=== PATIENT | female | born 1980 | race Caucasian/White ===

== ENCOUNTER 2016-07-01 08:17 | Emergency (ER) | payer SELFPAY ==
[~2016-07-01] VITALS: Ht 152.4 cm; Wt 75.3 kg
[2016-07-01 08:19] VITALS: TEMP 36.9; Ht 152.4 cm; Wt 75.3 kg
[2016-07-01] MEDS ORDERED: AZITTAB PO (09:15)
[2016-07-01] MEDS ORDERED: PIPERACILLIN/TAZOBACTAM 4.5 GM/100ML D5W IV STA (09:23)
[2016-07-01] MEDS ORDERED: KETOROLAC TROMETHAMINE 30 MG/ML VIAL IV STA (09:23)
[2016-07-01] MEDS ORDERED: SODIUM CHLORIDE 0.9% 1000ML 1,000 ML IV STA (09:23)
[2016-07-01] MEDS ORDERED: ONDANSETRON INJ 2 MG/ML 2 ML VIAL IV STA (09:23)
--- NOTE | 2016-07-01 09:31 | EMERGENCY ROOM VISIT NOTE ---
History Report prepared by Seb: Jamie Brown Under the Supervision of: Dr. Aureliano Prater M.D. First contact with patient: 09:14 Chief Complaint: DENTAL PAIN Stated Complaint: CHEST DISCOMFORT, TOOTH INFECTION Nursing Triage Summary: Pt states "this is the 6th time I've had a tooth infection. I don't see the Dr" . States this is the 5th day of this infection, taking zpack for it and it's not working. "I just had it at home (zpack)". Now c/o left facial pain and chest discomfort (possible from tacos with hot sauce last night) Tooth infection left front lower. History of Present Illness The patient is a 36 year old female who presents to the Emergency Room with complaints of constant dental pain for the past five days. The patient states that this is the 6th time this year that she has had a tooth infection. The patient additionally complains of some sharp pain in her chest that is worse with movement and deep breaths. The patient states that she started a Z-pack since she thinks that she has an infection again, however it has not helped. The patient additionally denies any medical heart history. Source of History: patient Onset: five days ago Position: teeth Timing: constant Associated Symptoms: + chest pain (sharp) Review of Systems See HPI for pertinent positives & negatives. A total of 10 systems reviewed and were otherwise negative. Past Medical & Surgical Medical Problems: (1) Tooth infection Family History Cancer Diabetes mellitus FH: Ulans-Dlkazrkci-Phead syndrome Heart disease Hypertension Kidney disease Kidney stones Lung disease Social History Smoking Status: Current Every Day Smoker Alcohol Use: heavy Marital Status: single Occupation Status: employed Current/Historical Medications Scheduled Azithromycin (Zithromax Z-Sim), 1 PKT PO UD Penicillin V Potassium (Veetids), 1 TAB PO QID Scheduled PRN Oxycodone/Acetaminophen 5MG/325MG (Percocet 5MG/325MG), 1-2 TAB PO Q4H PRN for Pain Allergies Coded Allergies: No Known Allergies (Unverified , NONE, 07/01/16) Physical Exam Vital Signs Date Time Temp Pulse Resp B/P Pulse Ox O2 Delivery O2 Flow Rate FiO2 07/01/16 11:38 89 118/80 100 07/01/16 10:24 82 20 105/75 95 Room Air 07/01/16 09:42 98 Room Air 2/15/17 09:34 85 07/01/16 08:19 36.9 103 16 131/85 99 Room Air Physical Exam GENERAL: Patient is a healthy-appearing well-nourished HEAD: Normocephalic atraumatic EYES: Ocular movements intact pupils equal and react to light OROPHARYNX mucous membranes are moist no exudates present no erythema or edema present DENTAL: Tenderness to the left mandible of the jaw. No outright abscess noted to the teeth. NECK: Supple no nuchal rigidity CHEST: Good equal expansion LUNGS: Clear and equal to auscultation CARDIAC: Normal S1 and S2. No evidence of Yonas angina. ABDOMEN: Soft nontender no guarding BACK: No CVA tenderness EXTREMITIES: No pain upon palpation normal muscle strength in all groups no clubbing cyanosis or edema NEURO: Patient is following commands is answering questions appropriately. Alert and oriented x3 Cranial Nerves 2-12 grossly intact Medical Decision & Procedures ER Provider Diagnostic Interpretation: X-ray results as stated below per my interpretation and radiologist interpretation. Other radiology results as stated below per my review and radiologist interpretation: CHEST ONE VIEW PORTABLE CLINICAL HISTORY: Chest pain. COMPARISON STUDY: Chest radiograph October 20, 2011. FINDINGS: Lung volumes are normal. Lungs are clear. There is no pneumothorax or pleural effusion. Cardiac size is normal. Mediastinal contours are normal. There is no evidence of pulmonary edema. IMPRESSION: No acute cardiopulmonary findings. Electronically signed by: Maciel Hauser M.D. 07/01/2016 10:01 AM Dictated Date/Time: 07/01/2016 9:[address] DOSE: 631.03 mGy.cm HISTORY: Pt c/o left sided facial swelling TECHNIQUE: Multiaxial CT images of the maxillofacial region were performed and reformatted in the coronal plane without the use of contrast. COMPARISON: None. FINDINGS: There is left mandibular subcutaneous fat stranding. There a few mildly enlarged left submandibular lymph nodes which are likely reactive. Multiple dental caries are present most pronounced within the left mandibular region. There is also a 6 mm periapical lucency at ADA 20 which appears to demonstrate a 1 mm focus of cortical breakthrough. There is soft tissue edema abutting the buccal surface of the left mandible. No definite loculated fluid collections on this noncontrast study to suggest an abscess at this time. The visualized brain parenchyma and orbits are unremarkable. IMPRESSION: 1. A 6 mm periapical lucency at ADA 20 which appears to demonstrate a 1 mm focus of cortical breakthrough at the buccal surface. There is associated soft tissue edema adjacent to the cortical breakthrough as well as left mandibular subcutaneous fat stranding which is likely reactive. No loculated fluid collections on this noncontrast study. 2. Multiple additional dental caries identified. Electronically signed by: Mohan Chappell M.D. 07/01/2016 11:11 AM Dictated Date/Time: 07/01/2016 11:00 AM Laboratory Results 07/01/16 09:33 Red Blood Count 5.09, Mean Corpuscular Volume 84.3, Mean Corpuscular Hemoglobin 28.9, Mean Corpuscular Hemoglobin Concent 34.3, Mean Platelet Volume 9.7, Neutrophils (%) (Auto) 69.0, Lymphocytes (%) (Auto) 22.1, Monocytes (%) (Auto) 6.6, Eosinophils (%) (Auto) 2.0, Basophils (%) (Auto) 0.2, Neutrophils # (Auto) 6.33, Lymphocytes # (Auto) 2.03, Monocytes # (Auto) 0.61, Eosinophils # (Auto) 0.18, Basophils # (Auto) 0.02 07/01/16 09:33 Test 07/01/16 09:33 White Blood Count 9.18 K/uL (4.8-10.8) Red Blood Count 5.09 M/uL (4.2-5.4) Hemoglobin 14.7 g/dL (12.0-16.0) Hematocrit 42.9 % (37-47) Mean Corpuscular Volume 84.3 fL (80-100) Mean Corpuscular Hemoglobin 28.9 pg (25-34) Mean Corpuscular Hemoglobin Concent 34.3 g/dl (32-36) Platelet Count 319 K/uL (130-400) Mean Platelet Volume 9.7 fL (7.4-10.4) Neutrophils (%) (Auto) 69.0 % Lymphocytes (%) (Auto) 22.1 % Monocytes (%) (Auto) 6.6 % Eosinophils (%) (Auto) 2.0 % Basophils (%) (Auto) 0.2 % Neutrophils # (Auto) 6.33 K/uL (1.4-6.5) Lymphocytes # (Auto) 2.03 K/uL (1.2-3.4) Monocytes # (Auto) 0.61 K/uL (0.11-0.59) Eosinophils # (Auto) 0.18 K/uL (0-0.5) Basophils # (Auto) 0.02 K/uL (0-0.2) RDW Standard Deviation 41.8 fL (36.4-46.3) RDW Coefficient of Variation 13.5 % (11.5-14.5) Immature Granulocyte % (Auto) 0.1 % Immature Granulocyte # (Auto) 0.01 K/uL (0.00-0.02) Anion Gap 8.0 mmol/L (3-11) Est Creatinine Clear Calc Drug Dose 86.4 ml/min Estimated GFR () 108.4 Estimated GFR (Non- 93.5 BUN/Creatinine Ratio 15.6 (10-20) Calcium Level 9.3 mg/dl (8.5-10.1) Total Bilirubin 0.4 mg/dl (0.2-1) Direct Bilirubin < 0.1 mg/dl (0-0.2) Aspartate Amino Transf (AST/SGOT) 17 U/L (15-37) Alanine Aminotransferase (ALT/SGPT) 29 U/L (12-78) Alkaline Phosphatase 87 U/L (45-117) Total Creatine Kinase 79 U/L (26-192) Creatine Kinase MB 0.7 ng/ml (0.5-3.6) Creatine Kinase MB Ratio 0.9 (0-3.0) Troponin I < 0.015 ng/ml (0-0.045) Total Protein 7.5 gm/dl (6.4-8.2) Albumin 3.7 gm/dl (3.4-5.0) Lipase 98 U/L (73-393) Labs reviewed by ED physician. Medications Administered Medications (Trade) Dose Ordered Sig/Tiffany Route Start Time Stop Time Status Last Admin Dose Admin Ketorolac Tromethamine (Toradol Inj) 30 mg NOW STAT IV 07/01/16 09:23 07/01/16 09:26 DC 07/01/16 09:56 30 MG Piperacillin Sod/ Tazobactam Sod 4.5 gm 4.5 gm NOW STAT IV 07/01/16 09:23 07/01/16 09:26 DC 07/01/16 09:58 4.5 GM Sodium Chloride (Nss 1000ml) 1,000 ml @ 999 mls/hr Q1H1M STAT IV 07/01/16 09:23 07/01/16 10:23 DC 07/01/16 09:55 999 MLS/HR Ondansetron HCl (Zofran Inj) 4 mg NOW STAT IV 07/01/16 09:23 07/01/16 09:26 DC 07/01/16 09:56 4 MG ECG Indication: chest pain Rate (beats per minute): 100 Rhythm: normal sinus Findings: no acute ischemic change, no ectopy ED Course 0914: Past medical records reviewed. The patient was evaluated in room C2. A complete history and physical examination was performed. 0923: Zofran Inj 4mg IV, Sodium Chloride 1000 ml @ 999 mls/hr IV, Zosyn 4.5gm IV , Toradol Inj 30mg IV 1020: I reevaluated the patient and she was resting. 1125: Upon reexamination the patient is feeling better. I discussed results and treatment plan with the patient. She verbalizes agreement and understanding. The patient is ready for discharge. Medical Decision Differential diagnosis: Etiologies such as cardiac ischemia, aortic dissection, pulmonary embolism, pneumonia, pneumothorax, musculoskeletal, infections, pericarditis, myocarditis , esophageal rupture, gastrointestinal, as well as others were entertained. This is a 36-year-old female who presents emergency department complaining of swollen jaw. The patient has a history of tooth infections. Because of the swelling she was sent for a CAT scan of her face however she does not have any evidence of Yonas's angina on examination. In addition the patient does not have an elevation in her white blood count. For this reason she was started on Zosyn in the emergency department. I'll continue her on penicillin however I stressed the need for follow-up with a dentist. Patient was in agreement with the treatment plan. Impression Primary Impression: Pain, dental Scribe Attestation The scribe's documentation has been prepared under my direction and personally reviewed by me in its entirety. I confirm that the note above accurately reflects all work, treatment, procedures, and medical decision making performed by me. Departure Information Dispostion Home / Self-Care Prescriptions Oxycodone/Acetaminophen 5MG/325MG (PERCOCET 5MG/325MG) Tab 1-2 TAB PO Q4H Y for Pain, #14 TAB Prov: Aureliano Prater MD 07/01/16 Penicillin V Potassium (VEETIDS) 500 Mg Tab 1 TAB PO QID for 10 Days, #40 TAB Prov: Aureliano Prater MD 07/01/16 Referrals No Doctor, Assigned (PCP) Forms HOME CARE DOCUMENTATION FORM, IMPORTANT VISIT INFORMATION, School Instructions, Work Instructions Patient Instructions My [facility], Visit Dental Additional Instructions You have been examined and treated today on an emergency basis only. This is not a substitute for, or an effort to provide, complete comprehensive medical care. It is impossible to recognize and treat all injuries or illnesses in a single emergency department visit. It is therefore important that you follow up closely with your PCP. Call as soon as possible for an appointment. Thank you for your time and consideration. I look forward to speaking with you again soon. Please don't hesitate to call us if you have any questions.
[2016-07-01 09:42] VITALS: O2SAT 98
[2016-07-01 09:46] LABS: BASO % 0.2 %; BASO ABS # 0.02 K/uL (0-0.2); COMPLETE YES; HEMATOCRIT 42.9 % (37-47); IG% 0.1 %; LYMPH % 22.1 %; LYMPH ABS # 2.03 K/uL (1.2-3.4); MEAN CELL VOLUME 84.3 fL (80-100); MEAN CORPUSCULAR HEMOGLOBIN 28.9 pg (25-34); MEAN CORPUSCULAR HGB CONC 34.3 g/dl (32-36); MEAN PLATELET VOLUME 9.7 fL (7.4-10.4); MONO % 6.6 %; PLATELET COUNT 319 K/uL (130-400); RED BLOOD COUNT 5.09 M/uL (4.2-5.4); WHITE BLOOD COUNT 9.18 K/uL (4.8-10.8)
--- NOTE | 2016-07-01 10:03 | DIAGNOSTIC IMAGING REPORT ---
CHEST ONE VIEW PORTABLE CLINICAL HISTORY: Chest pain. COMPARISON STUDY: Chest radiograph October 20, 2011. FINDINGS: Lung volumes are normal. Lungs are clear. There is no pneumothorax or pleural effusion. Cardiac size is normal. Mediastinal contours are normal. There is no evidence of pulmonary edema. IMPRESSION: No acute cardiopulmonary findings. Electronically signed by: Maciel Hauser M.D. 07/01/2016 10:01 AM Dictated Date/Time: 07/01/2016 9:44 AM
[2016-07-01 10:07] LABS: ALT/SGPT 29 U/L (12-78); BLOOD UREA NITROGEN 13 mg/dl (7-18); BUN/CREATININE RATIO 15.6 (10-20); CALCIUM 9.3 mg/dl (8.5-10.1); CARBON DIOXIDE 27 mmol/L (21-32); CHLORIDE 106 mmol/L (98-107); GLUCOSE 95 mg/dl (70-99); POTASSIUM 4.3 mmol/L (3.5-5.1); SODIUM 141 mmol/L (136-145)
[2016-07-01 10:12] LABS: ALKALINE PHOSPHATASE 87 U/L (45-117); AST/SGOT 17 U/L (15-37); CKMB/CK RATIO 0.9 (0-3.0)
--- NOTE | 2016-07-01 11:13 | DIAGNOSTIC IMAGING REPORT ---
MAXILLOFACIAL CT CT DOSE: 631.03 mGy.cm HISTORY: Pt c/o left sided facial swelling TECHNIQUE: Multiaxial CT images of the maxillofacial region were performed and reformatted in the coronal plane without the use of contrast. COMPARISON: None. FINDINGS: There is left mandibular subcutaneous fat stranding. There a few mildly enlarged left submandibular lymph nodes which are likely reactive. Multiple dental caries are present most pronounced within the left mandibular region. There is also a 6 mm periapical lucency at ADA 20 which appears to demonstrate a 1 mm focus of cortical breakthrough. There is soft tissue edema abutting the buccal surface of the left mandible. No definite loculated fluid collections on this noncontrast study to suggest an abscess at this time. The visualized brain parenchyma and orbits are unremarkable. IMPRESSION: 1. A 6 mm periapical lucency at ADA 20 which appears to demonstrate a 1 mm focus of cortical breakthrough at the buccal surface. There is associated soft tissue edema adjacent to the cortical breakthrough as well as left mandibular subcutaneous fat stranding which is likely reactive. No loculated fluid collections on this noncontrast study. 2. Multiple additional dental caries identified. Electronically signed by: Mohan Chappell M.D. 07/01/2016 11:11 AM Dictated Date/Time: 07/01/2016 11:00 AM
[2016-07-01] MEDS ORDERED: PENI500T2 PO (11:17)
[2016-07-01] MEDS ORDERED: OXYC-57 PO (11:21)
[2016-07-01 11:38] VITALS: BP 118/80; PULSE 89; O2SAT 100
== END 2016-07-01 11:39 | disposition home or self-care (01) ==
LOC: C.EDB 08:19 → C.EDC 11:39
DX: K08.89 Other specified disorders of teeth and supporting structures (principal); F17.200 Nicotine dependence, unspecified, uncomplicated

== ENCOUNTER 2017-08-08 09:13 | Emergency (ER) | payer SELFPAY ==
[~2017-08-08] VITALS: Ht 152.4 cm; Wt 75.6 kg
[~2017-08-08 09:13] MED LIST: AZITTAB PO
[2017-08-08 09:17] VITALS: BP 117/82; PULSE 92; TEMP 36.6; O2SAT 100; Ht 152.4 cm; Wt 75.6 kg
--- NOTE | 2017-08-08 15:52 | EMERGENCY ROOM VISIT NOTE ---
ED Visit Note First contact with patient: 09:23 CHIEF COMPLAINT: Left wrist injury HISTORY OF PRESENT ILLNESS: This 37-year-old white female patient complains of moderate constant wrist pain today after lifting a heavy television yesterday. 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 She had immediate onset of pain along the ulnar border. The pain is worse with any movement of the wrist. No laceration, no numbness or weakness. She does note some tingling in the fingers today. No other injury. There was no direct trauma. Right-hand dominant. No prior history of significant left wrist injury. Pain is 5/10. She does note difficulty getting into a supinated position. No loss of finger function. REVIEW OF SYSTEMS: GENERAL: No fever or chills, easy fatigue, loss of appetite, or significant weight change. NEUROLOGICAL: No headache, change in mental status, weakness, numbness, or dizziness. PMH: Supplemental sheet was reviewed. Previous surgeries: None Medical history: Significant for history of bronchitis and dental infections Current medications: Filed in patient's chart Allergies: NKDA Family history: Significant for diabetes, heart disease, hypertension, cancer, kidney stones, and Tmgcl-Irqyrkajm-Sojke syndrome SOCIAL HISTORY: Patient lives at home. Employed. Positive tobacco use, no EtOH use. PHYSICAL EXAM: Vital Signs: Afebrile. Reviewed and found in patient's chart. General: Well-developed, well-nourished, white female, in no acute distress. Obvious discomfort. She is sitting on a bed. MENTAL STATUS: Alert and oriented. Skin: Warm and dry with good turgor. No rashes or lesions. Mild ecchymosis and edema present over the ulnar border of the wrist. No erythema. The patient is not diaphoretic. No abrasions. Musculoskeletal: There is tenderness over her flexor carpi ulnaris and ulnar border of the wrist. Range of motion of the digits and wrist is full, but extremes of flexion and extension as well as radial deviation, cause pain. No obvious deformity. No pain with palpation over the metacarpal heads or digits. No pain with palpation over the anatomic snuffbox, distal radius, or metacarpals. There is intact motion of the digits, including opposition and circumduction of the thumb. Neurologic: The hand is warm and well perfused. Median, radial, and ulnar nerve functions are clearly intact. She notes some tingling across the ulnar nerve distribution EMERGENCY DEPARTMENT COURSE: A Velcro wrist splint and compressigrip was placed under my direction to insure proper positioning. DIAGNOSIS: Left wrist strain DISCHARGE INSTRUCTIONS & TREATMENT: The patient was educated regarding today's findings. Conservative care measures were discussed. Velcro wrist splint was applied to the patient. Wear the wrist splint for 4 - 5 days until the pain subsides. Use the compression wrap as well. Ice and elevate the wrist intermittently to reduce pain and swelling. Ibuprofen, 600mg and Tylenol 1 g every 6 hours if needed for the pain. Gentle motion daily. Followup with her orthopedist if not improved over the next 7 days. She was reassured that I do not suspect a break at this point. Possibility of tendon strain versus partial rupture was discussed. Current/Historical Medications Scheduled Azithromycin (Zithromax Z-Sim), 1 PKT PO UD Allergies Coded Allergies: No Known Allergies (Unverified , NONE, 07/01/16) Vital Signs Date Time Temp Pulse Resp B/P (MAP) Pulse Ox O2 Delivery O2 Flow Rate FiO2 08/08/17 09:17 36.6 92 20 117/82 100 Room Air Departure Information Impression Primary Impression: Strain of wrist, left Dispostion Home / Self-Care Condition GOOD Referrals Jose Hunt M.D. Forms WORK / SCHOOL INSTRUCTIONS, HOME CARE DOCUMENTATION FORM, MOTRIN USE, TYLENOL USE, IMPORTANT VISIT INFORMATION Patient Instructions My [facility] [place] Additional Instructions Use the compression sleeve for edema control for the next 3-5 days Use the wrist splint for support over the next 5-7 days Gentle motion daily Tylenol and Motrin every 6 hours as needed for mild discomfort Ice and elevate frequently 3 days, then use moist heat if symptoms are not improving over the next 7 days, follow-up with orthopedics for reexamination
== END 2017-08-08 09:41 | disposition home or self-care (01) ==
LOC: C.EDB 09:15
DX: S66.912A Strain of unspecified muscle, fascia and tendon at wrist and hand level, left hand, initial encounter (principal); X50.0XXA Overexertion from strenuous movement or load, initial encounter; Z83.3 Family history of diabetes mellitus; Z82.49 Family history of ischemic heart disease and other diseases of the circulatory system; Z84.1 Family history of disorders of kidney and ureter